=== PATIENT | female | born 1985 | race Caucasian/White ===

== ENCOUNTER → 2016-12-07 | Outpatient (CLI) | payer BC | END | disposition home or self-care (01) | LOC: C.PAPS 09:35 | PROVIDERS: ATTEND Obstetrics & Gynecology | DX: Z01.419 Encounter for gynecological examination (general) (routine) without abnormal findings (principal) ==

== ENCOUNTER → 2016-12-07 | Outpatient (CLI) | payer BC | END | disposition home or self-care (01) | LOC: C.LABSPEC 18:03 | PROVIDERS: ATTEND Obstetrics & Gynecology | DX: N89.8 Other specified noninflammatory disorders of vagina (principal) ==

== ENCOUNTER → 2017-01-26 | Outpatient (CLI) | payer BC ==
--- NOTE | 2017-01-26 15:55 | MAMMOGRAPHY REPORT ---
BILATERAL FIRST EVER DIGITAL SCREENING MAMMOGRAM TOMOSYNTHESIS WITH CAD: 01/26/2017 CLINICAL HISTORY: Routine screening. Baseline exam. Family history of breast cancer = mother at ag e 40. TECHNIQUE: Bilateral breast tomosynthesis in addition to standard 2D mammography was performed. Curr ent study was also evaluated with a Computer Aided Detection (CAD) system. COMPARISON: No prior exams were available for comparison. BREAST COMPOSITION: There are scattered areas of fibroglandular density in both breasts. FINDINGS: No suspicious mass, architectural distortion or cluster of microcalcifications is seen. IMPRESSION: ACR BI-RADS CATEGORY 1: NEGATIVE 1. There is no mammographic evidence of malignancy. A 1 year screening mammogram is recommended. 2. Also given the strong family history of premenopausal breast cancer, if the patient's lifetime r isk for developing breast cancer is at least 20%, she should have additional screening with breast M RI. The patient will receive written notification of the results. Approximately 10% of breast cancers are not detected with mammography. A negative mammographic repor t should not delay biopsy if a clinically suggestive mass is present. Mariposa Soliz M.D. ay/:01/26/2017 13:02:09 Fried Cake Maker: Felicia GOMEZ(R)(M), [facility] letter sent: Normal 1/2 BI-RADS Code: ACR BI-RADS Category 1: Negative
== END | disposition home or self-care (01) ==
LOC: C.MAMM 12:02
PROVIDERS: ATTEND Obstetrics & Gynecology
DX: Z12.31 Encounter for screening mammogram for malignant neoplasm of breast (principal); Z80.3 Family history of malignant neoplasm of breast

== ENCOUNTER → 2017-04-22 | Outpatient (CLI) | payer BC ==
[2017-04-25 07:27] LABS: CHLAMYDIA TRACH RNA*** NOT DETECTED (NOT DETECTED); GC (NEIS GONORRHOEAE)RNA** NOT DETECTED (NOT DETECTED)
== END | disposition home or self-care (01) ==
LOC: C.LABSPEC 16:02
PROVIDERS: ATTEND Physician Assistant
DX: Z11.3 Encounter for screening for infections with a predominantly sexual mode of transmission (principal); N94.10 Unspecified dyspareunia

== ENCOUNTER → 2017-04-22 | Outpatient (CLI) | payer BC | END | disposition home or self-care (01) | LOC: C.LAB1850 10:57 | PROVIDERS: ATTEND Physician Assistant | DX: Z11.3 Encounter for screening for infections with a predominantly sexual mode of transmission (principal) ==

== ENCOUNTER 2017-05-16 13:55 | Emergency (ER) | payer BC ==
[~2017-05-16] VITALS: Ht 163.8 cm; Wt 71.8 kg
[2017-05-16 13:56] VITALS: BP 121/75; PULSE 87; TEMP 37.1; O2SAT 97; Ht 163.8 cm; Wt 71.8 kg
--- NOTE | 2017-05-17 06:56 | EMERGENCY ROOM VISIT NOTE ---
ED Visit Note First contact with patient: 14:14 Emergency Department Note Patient was sent to the ED by [facility]. She was in a sports competition over the weekend which involves swimming in the river. She reports while swimming in the river she struck her finger on something under the water and developed a soft tissue injury. She felt this was possibly a needle. She was seen at [facility] and was given a tetanus update and the start of hepatitis B immunization series. She was sent to the ED for possible hepatitis B immunoglobulin. I did make a call to our pharmacy who reports they do have hepatitis B immune globulin but that is for specific known hepatitis B exposure and not for general use of possible exposure. I did review this information with the patient and encouraged her to continue with her vaccination series.
--- NOTE | 2017-05-17 15:43 | Pharmacy Progress Note ---
ED Pharmacist Progress Note Date of Service: May 17, 2017. I was asked to review this patient's case by DULCE Morales. The patient may have been stuck by a needle while swimming and had presented to the ER yesterday for Hepatitis B immune globulin and she was to begin the Hepatitis B vaccine series. The patient had not previously been immunized for Hepatitis B. She did not receive the immune globulin yesterday. Based upon my review of the guidelines on this topic, a patient who has not been previously immunized against Hepatitis B and who receives a needle-stick injury from an unknown source (unknown if Hep B positive or not) should receive both the immune globulin and the vaccine series. I discussed these guidelines with Chencho and the decision was made to contact this patient and have her return for the immune globulin. I attempted to contact this patient with the phone number provided ([phone] ), however there was no answer. I did leave a message asking her to return my call.
--- NOTE | 2017-05-18 13:10 | Pharmacy Progress Note ---
ED Pharmacist Progress Note Date of Service: May 18, 2017. I spoke with this patient today regarding the need for Hepatitis B immune globulin. The patient stated she had lab work done by her physician earlier and the results were reported yesterday showing that she had been previously immunized against Hepatitis B and that she no longer needed the immune globulin. At the time of the incident she could not remember if she had been immunized in the past and felt that it was a time sensitive situation and wanted to received the immune globulin PEGGY. However given the hx of prior immunization the need for the immune globulin is unnecessary if she received the entire vaccine series or has a documented adequate serum antibody response. The patient stated her provider felt that she was adequately protected based upon the labs done.
== END 2017-05-16 14:30 | disposition home or self-care (01) ==
LOC: C.EDB 13:56 → C.EDD 14:30
DX: S69.90XA Unspecified injury of unspecified wrist, hand and finger(s), initial encounter (principal); Z20.9 Contact with and (suspected) exposure to unspecified communicable disease; W46.1XXA Contact with contaminated hypodermic needle, initial encounter